=== PATIENT | male | born 1940 | race Two or more races ===

== ENCOUNTER 2023-12-13 07:06 | Inpatient (IN) | payer MEDICAID, OTHER ==
[~2023-12-13] VITALS: Ht 170.2 cm; Wt 83.3 kg
[2023-12-13 07:50] LABS: Basophils # (auto) 0 10 ^3/uL (0-0.2); Basophils % (auto) 0.2 % (0.0-2.0); Eosinophils # (auto) 0 10 ^3/uL (0-0.8); Hematocrit 49.5 % (41.0-53.0); Hemoglobin 16.6 g/dL (13.5-17.5); Lymphocytes # (auto) 0.5 10 ^3/uL (0.4-5.4); Lymphocytes % (auto) 3.7 % (10.0-50.0); Mean Corpuscular Hemoglobin 30.9 pg (28.0-32.0); Mean Corpuscular Hgb Conc. 33.6 g/dL (32.0-36.0); Mean Corpuscular Volume 91.8 fL (80.0-100.0); Monocytes # (auto) 0.5 10 ^3/uL (0-1.3); Monocytes % (auto) 3.6 % (0.0-12.0); Neutrophils # (auto) 12.7 10 ^3/uL (1.6-8.6); Neutrophils % (auto) 92.5 % (37.0-80.0); Red Blood Cells 5.39 10^6/uL (4.5-5.90); Red Cell Distribution Width 14.1 % (11.8-14.3); White Blood Cell 13.8 10^3/uL (4.4-10.8)
[2023-12-13 08:05] LABS: Urine Bacteria None Seen /hpf (None Seen)
[2023-12-13 08:07] LABS: Alanine Aminotransferase 20 U/L (7-40); Alkaline Phosphatase 117 U/L (46-116); Calcium 9.2 mg/dL (8.5-10.1); Carbon Dioxide 22 mmol/L (20-30); Chloride 103 mmol/L (98-107); Glucose 320 mg/dL (74-106); Potassium 4.6 mmol/L (3.5-5.1); Sodium 135 mmol/L (136-145)
[2023-12-13 08:08] LABS: Albumin 4.6 g/dL (3.2-4.8); Anion Gap 10 (5-15); Aspartate Aminotransferase 25 U/L (13-40); BUN/Creatinine Ratio 16.1 (10.0-20.0); Bilirubin, Total 1.3 mg/dL (0.2-1.0); Blood Urea Nitrogen 24 mg/dL (9-23); Total Protein 7.2 g/dL (5.7-8.2)
[2023-12-13 08:29] LABS: Urine Blood TRACE /uL (Negative); Urine Clarity Clear (Clear); Urine Color Light-Yellow (Yellow); Urine Protein, UAD 1+ (Negative); Urine Specific Gravity 1.025 (1.001-1.035); Urine Urobilinogen Normal (Negative); Urine WBC 1 /hpf (0 - 3)
[2023-12-13 09:08] LABS: Lipase 41 U/L (12-53)
[2023-12-13] MEDS: SODIUM CHLORIDE 0.9% 1,000 ML IV ONE (09:50)
[2023-12-13] MEDS: SODIUM CHLORIDE 0.9% 1,000 ML IVB ONE (09:51)
[2023-12-13] MEDS: MORPHINE SULFATE INJ 2 MG/ml SYRG IV ONE ×2 (09:53→10:06)
[2023-12-13] MEDS: ONDANSETRON HCL 4 MG/2 ML VIAL IV ONE ×2 (09:53→10:06)
[2023-12-13] MEDS: InsuLIN REG 1unit/0.01ml Soln (100units/ml) IV ONE (09:55)
[2023-12-13 10:04] VITALS: PULSE 71; RESP 16; O2SAT 96
[2023-12-13] MEDS ORDERED: DOCUSATE SOD 100 MG CAP PO PRN (12:00)
[2023-12-13] MEDS ORDERED: DEXTROSE (50%) 50ML SYRG IV PRN (12:00)
[2023-12-13] MEDS ORDERED: ONDANSETRON HCL 4 MG/2 ML VIAL IV PRN (12:00)
[2023-12-13] MEDS: ACCU-CHEK COMFORT CURVE STRIP VI SCH (12:06)
[2023-12-13] MEDS: InsuLIN REG 1unit/0.01ml Soln (100units/ml) SC SCH (12:10)
[2023-12-13] MEDS: DICYCLOMINE HCL (10MG/ML) 2 ML AMPULE IM ONE (13:14)
[2023-12-13] MEDS: DICYCLOMINE HCL 10 MG CAP PO SCH (17:18)
[2023-12-13 17:43] VITALS: BP 136/71; PULSE 95; RESP 16; TEMP 98; O2SAT 94
[2023-12-13] MEDS: SODIUM CHLORIDE 0.9% 1,000 ML IV SCH (17:43)
[2023-12-13 18:03] VITALS: RESP 16; O2SAT 97
[2023-12-13 18:41] LABS: Creatinine, Urine 87.87 mg/dL (30.0-125.0)
[2023-12-13] MEDS ORDERED: MEMA1TAB3 PO (18:52)
[2023-12-13] MEDS ORDERED: TICA90TA PO (18:52)
[2023-12-13] MEDS ORDERED: METO-289 PO (18:52)
[2023-12-13] MEDS ORDERED: LEVO50TA7 PO (18:52)
[2023-12-13] MEDS ORDERED: HYDR-2792 PO (18:52)
[2023-12-13] MEDS ORDERED: ASPI-543 PO (18:52)
[2023-12-13] MEDS ORDERED: LOSA-535 PO (18:52)
[2023-12-13] MEDS ORDERED: METF-370 PO (18:52)
[2023-12-13] MEDS ORDERED: ATOR20TA50 PO (18:52)
[2023-12-13] MEDS: PANTOPRAZOLE 40 MG/10 ML VIAL INJ IV ONE (19:04)
[2023-12-13] MEDS: cefTRIAXone 1GM/50ML D5W 50 ML IV ONE (19:04)
[2023-12-13 21:00] VITALS: BP 160/76; PULSE 97; RESP 20; TEMP 99.5; O2SAT 96
[2023-12-13 21:45] VITALS: BP 151/67
[2023-12-14] VITALS (8 sets, daily range): BP systolic 119–141; BP diastolic 66–81; PULSE 10–118; RESP 18–20; TEMP 98–100.2; O2SAT 90–94
[2023-12-14 07:10] LABS: Basophils # (auto) 0 10 ^3/uL (0-0.2); Basophils % (auto) 0.2 % (0.0-2.0); Eosinophils # (auto) 0 10 ^3/uL (0-0.8); Eosinophils % (auto) 0.1 % (0.0-7.0); Hemoglobin 15.7 g/dL (13.5-17.5); Lymphocytes # (auto) 0.9 10 ^3/uL (0.4-5.4); Lymphocytes % (auto) 7.1 % (10.0-50.0); Mean Corpuscular Hemoglobin 30.9 pg (28.0-32.0); Mean Corpuscular Volume 90.7 fL (80.0-100.0); Monocytes # (auto) 0.9 10 ^3/uL (0-1.3); Monocytes % (auto) 7.6 % (0.0-12.0); Neutrophils # (auto) 10.5 10 ^3/uL (1.6-8.6); Red Blood Cells 5.08 10^6/uL (4.5-5.90); Red Cell Distribution Width 14.4 % (11.8-14.3); White Blood Cell 12.3 10^3/uL (4.4-10.8)
[2023-12-14 07:30] LABS: Alanine Aminotransferase 12 U/L (7-40); Albumin 3.6 g/dL (3.2-4.8); Alkaline Phosphatase 70 U/L (46-116); Anion Gap 9 (5-15); Aspartate Aminotransferase 14 U/L (13-40); BUN/Creatinine Ratio 12.9 (10.0-20.0); Blood Urea Nitrogen 16 mg/dL (9-23); Calcium 8.4 mg/dL (8.7-10.4); Carbon Dioxide 21 mmol/L (20-30); Chloride 106 mmol/L (98-107); Glucose 227 mg/dL (74-106); Sodium 136 mmol/L (136-145)
[2023-12-14 07:31] LABS: Bilirubin, Total 1.7 mg/dL (0.2-1.0); Total Protein 6.1 g/dL (5.7-8.2)
[2023-12-14] MEDS: PANTOPRAZOLE 40 MG/10 ML VIAL INJ IV SCH (09:49)
[2023-12-14] MEDS: cefTRIAXone 1GM/50ML D5W 50 ML IV SCH (09:49)
[2023-12-14] MEDS: ACETAMINOPHEN 325 MG TAB PO PRN (13:07)
[2023-12-15] VITALS (8 sets, daily range): BP systolic 138–160; BP diastolic 69–87; PULSE 64–99; RESP 14–22; TEMP 98.1–99; O2SAT 92–98
[2023-12-15] MEDS ORDERED: OMNIPAQUE 12mg/ml 500ml ORAL SOLUTION PO ONE (09:45)
[2023-12-15 10:14] LABS: Basophils # (auto) 0 10 ^3/uL (0-0.2); Basophils % (auto) 0.3 % (0.0-2.0); Eosinophils # (auto) 0.1 10 ^3/uL (0-0.8); Eosinophils % (auto) 0.5 % (0.0-7.0); Hematocrit 41.4 % (41.0-53.0); Hemoglobin 14.2 g/dL (13.5-17.5); Lymphocytes # (auto) 0.7 10 ^3/uL (0.4-5.4); Lymphocytes % (auto) 6.9 % (10.0-50.0); Mean Corpuscular Hemoglobin 31.2 pg (28.0-32.0); Mean Corpuscular Hgb Conc. 34.2 g/dL (32.0-36.0); Monocytes # (auto) 0.7 10 ^3/uL (0-1.3); Monocytes % (auto) 6.2 % (0.0-12.0); Neutrophils # (auto) 9.2 10 ^3/uL (1.6-8.6); Neutrophils % (auto) 86.1 % (37.0-80.0); Red Blood Cells 4.54 10^6/uL (4.5-5.90); Red Cell Distribution Width 13.9 % (11.8-14.3); White Blood Cell 10.7 10^3/uL (4.4-10.8)
[2023-12-15 10:20] LABS: Alanine Aminotransferase 13 U/L (7-40); Alkaline Phosphatase 57 U/L (46-116); Anion Gap 6 (5-15); BUN/Creatinine Ratio 12.9 (10.0-20.0); Blood Urea Nitrogen 16 mg/dL (9-23); Carbon Dioxide 22 mmol/L (20-30); Chloride 108 mmol/L (98-107); Glucose 259 mg/dL (74-106); Potassium 3.7 mmol/L (3.5-5.1); Sodium 136 mmol/L (136-145)
[2023-12-15 10:21] LABS: Albumin 3.3 g/dL (3.2-4.8); Aspartate Aminotransferase 13 U/L (13-40); Bilirubin, Total 1.3 mg/dL (0.2-1.0); Total Protein 5.7 g/dL (5.7-8.2)
[2023-12-15 10:48] LABS: Lipase 29 U/L (12-53)
[2023-12-15] MEDS: MORPHINE SULFATE INJ 2 MG/ml SYRG IV PRN (17:05)
[2023-12-16 01:00] VITALS: BP 147/71; PULSE 72; RESP 20; TEMP 98.1; O2SAT 93
[2023-12-16 05:00] VITALS: BP 149/70; PULSE 77; RESP 20; TEMP 98; O2SAT 97
[2023-12-16 08:00] VITALS: BP 149/75; PULSE 75; RESP 19; TEMP 98.2; O2SAT 96
[2023-12-16 11:36] LABS: Basophils # (auto) 0 10 ^3/uL (0-0.2); Basophils % (auto) 0.4 % (0.0-2.0); Eosinophils # (auto) 0.1 10 ^3/uL (0-0.8); Eosinophils % (auto) 2.2 % (0.0-7.0); Hematocrit 40.5 % (41.0-53.0); Hemoglobin 13.8 g/dL (13.5-17.5); Lymphocytes # (auto) 0.7 10 ^3/uL (0.4-5.4); Lymphocytes % (auto) 12.1 % (10.0-50.0); Mean Corpuscular Volume 91.3 fL (80.0-100.0); Monocytes # (auto) 0.3 10 ^3/uL (0-1.3); Monocytes % (auto) 5.6 % (0.0-12.0); Neutrophils # (auto) 4.9 10 ^3/uL (1.6-8.6); Neutrophils % (auto) 79.7 % (37.0-80.0); Red Blood Cells 4.44 10^6/uL (4.5-5.90); Red Cell Distribution Width 13.6 % (11.8-14.3); White Blood Cell 6.1 10^3/uL (4.4-10.8)
[2023-12-16 11:59] LABS: Chloride 108 mmol/L (98-107); Potassium 3.7 mmol/L (3.5-5.1); Sodium 134 mmol/L (136-145)
[2023-12-16 12:00] LABS: Anion Gap 4 (5-15); Calcium 8.2 mg/dL (8.7-10.4); Carbon Dioxide 22 mmol/L (20-30)
[2023-12-16 12:05] LABS: BUN/Creatinine Ratio 10.7 (10.0-20.0); Blood Urea Nitrogen 11 mg/dL (9-23); Glucose 184 mg/dL (74-106)
[2023-12-16 12:06] LABS: Magnesium 1.9 mg/dL (1.6-2.6)
[2023-12-16 12:30] VITALS: BP 161/77; PULSE 72; RESP 18; TEMP 98.1; O2SAT 94
[2023-12-16 16:15] LABS: Triglycerides 127 mg/dL (< 150)
[2023-12-16 16:16] LABS: LDL Cholesterol 53 mg/dL (< 100)
[2023-12-16 16:17] LABS: Cholesterol 97 mg/dL (< 200); HDL Cholesterol 24 mg/dL (40-59)
[2023-12-16 16:30] VITALS: BP 126/58; PULSE 59; RESP 17; TEMP 97.7; O2SAT 95
[2023-12-16 21:51] VITALS: BP 149/76; PULSE 70; RESP 20; TEMP 97.6; O2SAT 94
[2023-12-17 01:00] VITALS: BP 161/78; PULSE 72; RESP 20; TEMP 97.7; O2SAT 93
[2023-12-17 05:00] VITALS: BP 166/76; PULSE 65; RESP 19; TEMP 97.9; O2SAT 94
[2023-12-17 07:18] LABS: Alanine Aminotransferase 39 U/L (7-40); Albumin 3.3 g/dL (3.2-4.8); Alkaline Phosphatase 63 U/L (46-116); Anion Gap 8 (5-15); Aspartate Aminotransferase 36 U/L (13-40); BUN/Creatinine Ratio 10.5 (10.0-20.0); Bilirubin, Total 0.7 mg/dL (0.2-1.0); Blood Urea Nitrogen 10 mg/dL (9-23); Calcium 8.6 mg/dL (8.5-10.1); Carbon Dioxide 22 mmol/L (20-30); Chloride 106 mmol/L (98-107); Glucose 171 mg/dL (74-106); Potassium 3.5 mmol/L (3.5-5.1); Sodium 136 mmol/L (136-145); Total Protein 5.5 g/dL (5.7-8.2)
[2023-12-17 07:24] LABS: Basophils # (auto) 0 10 ^3/uL (0-0.2); Basophils % (auto) 0.6 % (0.0-2.0); Eosinophils # (auto) 0.2 10 ^3/uL (0-0.8); Eosinophils % (auto) 3.5 % (0.0-7.0); Hematocrit 41.3 % (41.0-53.0); Lymphocytes # (auto) 0.7 10 ^3/uL (0.4-5.4); Lymphocytes % (auto) 13.3 % (10.0-50.0); Mean Corpuscular Hemoglobin 30.5 pg (28.0-32.0); Mean Corpuscular Hgb Conc. 33.9 g/dL (32.0-36.0); Mean Corpuscular Volume 89.9 fL (80.0-100.0); Monocytes # (auto) 0.3 10 ^3/uL (0-1.3); Neutrophils # (auto) 4.2 10 ^3/uL (1.6-8.6); Neutrophils % (auto) 76.6 % (37.0-80.0); Nucleated Red Blood Cells % 0.1 %; Red Cell Distribution Width 13.3 % (11.8-14.3); White Blood Cell 5.5 10^3/uL (4.4-10.8)
[2023-12-17] MEDS ORDERED: LEVO500T91 PO (08:18)
[2023-12-17] MEDS ORDERED: DICY10CA PO (08:19)
[2023-12-17] MEDS ORDERED: METR-344 PO (08:19)
[2023-12-17 09:15] VITALS: BP 161/82; PULSE 66; RESP 20; TEMP 97.9; O2SAT 94
[2023-12-17 10:29] VITALS: TEMP 36.6
== END 2023-12-17 12:10 | disposition home or self-care (01) | DRG 871 ==
LOC: ER 07:06 → OVERFLOW 12:51 → CENTRAL 17:35
PROVIDERS: ADMIT Family Medicine; ATTEND Family Medicine
PROC: 0T913ZZ Drainage of Left Kidney, Percutaneous Approach (ICD-10-PCS; principal; 2023-12-16)
PROC: BT42ZZZ Ultrasonography of Left Kidney (ICD-10-PCS; 2023-12-16)
DX: A41.9 Sepsis, unspecified organism (principal); N17.0 Acute kidney failure with tubular necrosis; E44.0 Moderate protein-calorie malnutrition; E86.0 Dehydration; D69.6 Thrombocytopenia, unspecified; N28.1 Cyst of kidney, acquired; E11.65 Type 2 diabetes mellitus with hyperglycemia; E11.22 Type 2 diabetes mellitus with diabetic chronic kidney disease; N18.9 Chronic kidney disease, unspecified; N20.0 Calculus of kidney; K82.8 Other specified diseases of gallbladder; I12.9 Hypertensive chronic kidney disease with stage 1 through stage 4 chronic kidney disease, or unspecified chronic kidney disease; E78.5 Hyperlipidemia, unspecified; Z95.0 Presence of cardiac pacemaker; Z83.3 Family history of diabetes mellitus; Z80.42 Family history of malignant neoplasm of prostate; Z86.73 Personal history of transient ischemic attack (TIA), and cerebral infarction without residual deficits; Z68.27 Body mass index [BMI] 27.0-27.9, adult
CPT/HCPCS: 36415; 74176; 76705; 76775; 76942; 78226; 80048; 80053; 80061; 81001; 82570; 82962; 83036; 83690; 83735; 83880; 84300; 84443; 84484; 85025; 87205; 93306; 96361; 96374; 96375; C1729; C9113; G0378; J1815; J2405